=== PATIENT | female | born 1965 | race Caucasian/White ===

== ENCOUNTER → 2023-08-14 | Outpatient (CLI) | payer BC | LOC: MC.RAD 16:08 | DX: Z12.31 Encounter for screening mammogram for malignant neoplasm of breast (principal) ==

== ENCOUNTER 2023-12-21 12:13 | Day surgery (SDC) | payer BC ==
[~2023-12-21] VITALS: Ht 152.4 cm; Wt 90.5 kg
[~2023-12-21 12:13] MED LIST: LR 1,000 ML IV SCH; Ondansetron 4 MG/2 ML VIAL IV PRN
[2023-12-21] MEDS ORDERED: SYNTHROID0.088 MG/T PO (12:47)
[2023-12-21] MEDS ORDERED: HCTZ 25MG TAB25 MG PO (12:47)
[2023-12-21 12:48] VITALS: BP 155/95; PULSE 75; TEMP 97.3
[2023-12-21] MEDS ORDERED: PROTONIX 40MG T40 MG PO (12:48)
[2023-12-21] MEDS ORDERED: ALLEGRA ALLERGY60 MG PO (12:48)
[2023-12-21 14:30] VITALS: BP 127/92; PULSE 80
[2023-12-21 14:45] VITALS: BP 142/85; PULSE 88
--- NOTE | 2023-12-21 15:01 | NUR ---
1430- PT BACK TO GI BAY 1 FROM EGD/COLON. ASSISTED TO RECLINER BY RN. MONITORS IN PLACE AND VS OBATINED. SPRITE AND MUFFIN GIVEN TO PT. NO COMPLAINTS OF PAIN OR NAUSEA. 1445-VS STABLE. DR. BARNES IN TO TALK WITH PT. 1447- IV REMOVED PER ORDERS AND DISCHARGE TEACHING DONE. ANSWERED ALL QUESTIONS IN FULL. 1500- PT DISCHARGED FROM HOSPITAL VIA WHEELCHAIR TO PRIVATE VEHICLE DRIVEN BY FRIEND, KERON.
[2023-12-21 15:29] VITALS: BP 127/92; PULSE 75
== END 2023-12-21 15:00 ==
LOC: SDCO 12:13
DX: Z12.11 Encounter for screening for malignant neoplasm of colon (principal); K62.1 Rectal polyp; K22.2 Esophageal obstruction; K21.00 Gastro-esophageal reflux disease with esophagitis, without bleeding; K57.30 Diverticulosis of large intestine without perforation or abscess without bleeding; Z79.899 Other long term (current) drug therapy
CPT/HCPCS: C1726; J2405; J7120